=== PATIENT | male | born 1995 | race Two or more races ===

== ENCOUNTER → 2018-10-22 20:42 | Emergency (ER) | payer OTHER ==
[~2018-10-22 20:42] MED LIST: Lidocaine 2% PF * 5 ML VIAL ONE
[2018-10-22 21:14] VITALS: BP 137/77
== END | disposition left against medical advice (07) ==
LOC: ED 20:42
DX: S61.215A Laceration without foreign body of left ring finger without damage to nail, initial encounter (principal); W26.0XXA Contact with knife, initial encounter; Y93.G1 Activity, food preparation and clean up; Y92.9 Unspecified place or not applicable; Z53.21 Procedure and treatment not carried out due to patient leaving prior to being seen by health care provider
CPT/HCPCS: 99281

== ENCOUNTER 2018-10-23 00:35 | Emergency (ER) | payer OTHER ==
--- NOTE | 2018-10-23 02:38 | ED ---
Laceration/Wound HPI - HPI Summary HPI Summary: This patient is a 23 year old M presenting to [facility] accompanied by a woman with a chief complaint of left hand ring finger laceration that occurred 6 hours ago. Pt states he was cooking when he accidently cut his finger. The patient rates the pain 2/10 in severity. He has the finger bandaged and bleeding has stopped at this time. Pt has no other complaints at this time. - History of Current Complaint Stated Complaint: FINGER LAC Time Seen by Provider: 10/23/18 02:08 Hx Obtained From: Patient Onset/Duration: Lasting Hours, Still Present Timing: Constant Onset Severity: Mild Current Severity: Mild Pain Intensity: 2 Pain Scale Used: 0-10 Numeric Associated Signs & Symptoms: Negative - fever - Allergy/Home Medications Allergies/Adverse Reactions: Allergies Allergy/AdvReac Type Severity Reaction Status Date / Time No Known Allergies Allergy Verified 10/23/18 00:42 PMH/Surg Hx/FS Hx/Imm Hx Cardiovascular History: Denies: Hx Coronary Artery Disease, Hx Peripheral Vascular Disease, Hx Rheumatic Fever Respiratory History: Denies: Hx Chronic Obstructive Pulmonary Disease (COPD), Hx Cystic Fibrosis, Hx Pleural Effusion, Hx Pulmonary Edema GI History: Denies: Hx Diverticulosis, Hx Gastroesophageal Reflux Disease, Hx Gastrointestinal Bleed Neurological History: Denies: Hx Developmental Delay Infectious Disease History: No Infectious Disease History: Denies: Traveled Outside the [place] in Last 30 Days - Family History Known Family History: Negative: Respiratory Disease, Seizure Disorder - Social History Lives: With Family Alcohol Use: Rare Hx Substance Use: No Substance Use Type: Reports: None Hx Tobacco Use: No Smoking Status (MU): Never Smoked Tobacco Review of Systems Negative: Fever Positive: Other - laceration All Other Systems Reviewed And Are Negative: Yes Physical Exam - Summary Physical Exam Summary: VITAL SIGNS: Reviewed. GENERAL: Patient is a well-developed and nourished male who is lying comfortable in the stretcher. Patient is not in any acute respiratory distress. HEAD AND FACE: No signs of trauma. No ecchymosis, hematomas or skull depressions. No sinus tenderness. EYES: PERRLA, EOMI x 2, No injected conjunctiva, no nystagmus. EARS: Hearing grossly intact. Ear canals and tympanic membranes are within normal limits. MOUTH: Oropharynx within normal limits. NECK: Supple, trachea is midline, no adenopathy, no JVD, no carotid bruit, no c- spine tenderness, neck with full ROM. CHEST: Symmetric, no tenderness at palpation LUNGS: Clear to auscultation bilaterally. No wheezing or crackles. CVS: Regular rate and rhythm, S1 and S2 present, no murmurs or gallops appreciated. ABDOMEN: Soft, non-tender. No signs of distention. No rebound no guarding, and no masses palpated. Bowel sounds are normal. EXTREMITIES: FROM in all major joints, no edema, no cyanosis or clubbing. NEURO: Alert and oriented x 3. No acute neurological deficits. Speech is normal and follows commands. SKIN: laceration on the 2cm left 4th digit with free flap Triage Information Reviewed: Yes Vital Signs On Initial Exam: Initial Vitals Temp Pulse Resp BP Pulse Ox 97.6 F 110 16 137/86 97 10/23/18 00:37 12 00:37 12 00:37 10/23/18 00:37 10/23/18 00:37 Completion Of Physical Exam Limited Due To: Dementia Procedures - Laceration/Wound Repair 1 Location: upper extremity Description: Linear Anesthesia: 2.0%, Epi Length, Depth and Shape: 2cm with free flap Irrigated w/ Saline (ccs): 10 Laceration/Wound Explored: clean Suture Type: Prolene - 5-0 Number of Sutures: 7 Sterile Dressing Applied?: Yes Diagnostics - Vital Signs Vital Signs Temp Pulse Resp BP Pulse Ox 10/23/18 00:37 97.6 F 110 16 137/86 97 - Laboratory Lab Statement: Any lab studies that have been ordered have been reviewed, and results considered in the medical decision making process. Laceration Repair Course/Dx - Course Assessment/Plan: This patient is a 23 year old M presenting to [facility] accompanied by a woman with a chief complaint of left hand ring finger laceration that occurred 6 hours ago. Pt states he was cooking when he accidently cut his finger. The patient rates the pain 2/10 in severity. He has the finger bandaged and bleeding has stopped at this time. Pt has no other complaints at this time. The laceration was repaired in the ED. Sterile dressing and abx applied. Pt was given motrin, percocet, and keflex. Patient will be discharged with prescription for keflex and follow up from PCP. The patient is agreeable with this plan. - Clinical Impression Provider Diagnoses: Laceration Discharge - Sign-Out/Discharge Documenting (check all that apply): Patient Departure - Discharge Plan Condition: Stable Disposition: HOME Patient Education Materials: Laceration (ED), Stitches Removal (ED) Referrals: [facility] [Outside] Additional Instructions: Keep the laceration clean and dry for two days. The stiches may be removed in 10 days. Apply bacitracin 3 times a day. RETURN TO THE EMERGENCY DEPARTMENT FOR CHANGING OR WORSENING SYMPTOMS. - Attestation Statements Document Initiated by Scribe: Yes Documenting Scribe: Fabian Love Provider For Whom Scribe is Documenting (Include Credential): Madeline Babb MD Scribe Attestation: IFabian , scribed for Madeline Babb MD on 10/23/18 at 0251. Status of Scribe Document: Ready
[2018-10-23] MEDS ORDERED: oxyCODONE/Acetamin 5/325 MG* TAB PO ONE (02:51)
[2018-10-23] MEDS ORDERED: Ibuprofen TAB* 800 MG PO ONE (02:51)
[2018-10-23] MEDS ORDERED: Cephalexin CAP* 500 MG PO ONE (02:52)
[2018-10-23 03:25] VITALS: BP 120/69
== END 2018-10-23 03:20 | disposition home or self-care (01) ==
LOC: ED 00:35
DX: S61.215A Laceration without foreign body of left ring finger without damage to nail, initial encounter (principal); W45.8XXA Other foreign body or object entering through skin, initial encounter; Y93.G3 Activity, cooking and baking; Y92.9 Unspecified place or not applicable
CPT/HCPCS: 12001; 99282; A9270-GY

== ENCOUNTER 2018-11-03 14:13 | Emergency (ER) | payer OTHER ==
--- NOTE | 2018-11-03 14:42 | ED ---
ED Suture/Wound Check - HPI Summary HPI Summary: Pt here for suture removal. Had a laceration to his left middle finger on October 23 while cooking. He had 7 sutures placed at that time. He denies redness, swelling, streaking, purulent drainage, fever, chills, numbness, tingling, weakness. He reports he left his dressing on for the first 48 hours and then took it off and he's been using his finger is normal since. He has not been covering or applying triple antibiotic ointment. He also reports she' s not sure if he took his antibiotics as directed however he is not reporting signs or symptoms of infection at this time. - History Of Current Complaint Chief Complaint: EDLacSutureRecheck Stated Complaint: SUTURE REMOVAL Time Seen by Provider: 11/03/18 14:15 Hx Obtained From: Patient, Family/Information Systems Planner - female rehabilitation liaison Pain Intensity: 0 - Allergies/Home Medications Allergies/Adverse Reactions: Allergies Allergy/AdvReac Type Severity Reaction Status Date / Time No Known Allergies Allergy Verified 11/03/18 14:19 PMH/Surg Hx/FS Hx/Imm Hx Previously Healthy: Yes Endocrine/Hematology History: Denies: Hx Anticoagulant Therapy, Hx Blood Disorders, Autoimmune Disease Cardiovascular History: Denies: Hx Coronary Artery Disease, Hx Peripheral Vascular Disease, Hx Rheumatic Fever Respiratory History: Denies: Hx Chronic Obstructive Pulmonary Disease (COPD), Hx Cystic Fibrosis, Hx Pleural Effusion, Hx Pulmonary Edema GI History: Denies: Hx Diverticulosis, Hx Gastroesophageal Reflux Disease, Hx Gastrointestinal Bleed Neurological History: Denies: Hx Developmental Delay - Immunization History Immunizations Up to Date: Yes Infectious Disease History: No Infectious Disease History: Denies: Hx of Known/Suspected MRSA, Traveled Outside the [place] in Last 30 Days - Family History Known Family History: Negative: Respiratory Disease, Seizure Disorder - Social History Occupation: Student [employer] Lives: With Family - female rehabilitation liaison Alcohol Use: Rare Hx Substance Use: No Substance Use Type: Reports: None Hx Tobacco Use: No Smoking Status (MU): Never Smoked Tobacco Review of Systems Constitutional: Negative Musculoskeletal: Negative Skin: Other - healing wound Neurological: Negative Psychological: Normal All Other Systems Reviewed And Are Negative: Yes Physical Exam Triage Information Reviewed: Yes Vital Signs On Initial Exam: Initial Vitals Temp Pulse Resp BP Pulse Ox 97.5 F 82 16 130/82 98 11/03/18 14:16 11/03/18 14:16 11/03/18 14:16 11/03/18 14:16 11/03/18 14:16 Vital Signs Reviewed: Yes Appearance: Positive: Well-Appearing, No Pain Distress, Well-Nourished Skin: Positive: Warm, Skin Color Reflects Adequate Perfusion, Dry - wound is dry , calloused flap at edges - no erythema, no ecchymosis, no edema, no drainge, no streaking - [address] Head/Face: Positive: Normal Head/Face Inspection Eyes: Positive: EOMI ENT: Positive: Hearing grossly normal Respiratory/Lung Sounds: Positive: Breath Sounds Present Cardiovascular: Positive: Pulses are Symmetrical in both Upper and Lower Extremities Musculoskeletal: Positive: Normal, Strength/ROM Intact Neurological: Positive: Normal, Sensory/Motor Intact, Alert, Oriented to Person Place, Time, CN Intact II-III Psychiatric: Positive: Normal Procedures - Procedure Summary Procedure Summary: 7 sutures removed from Left finger - 1 is buried into tissue but removed without trauma to tissue - wound cleaned with alcohol and steristrips applied as flap is raised at edges - pt tolerated well. Diagnostics - Vital Signs Vital Signs Temp Pulse Resp BP Pulse Ox 11/03/18 14:16 97.5 F 82 16 130/82 98 - Laboratory Lab Statement: Any lab studies that have been ordered have been reviewed, and results considered in the medical decision making process. Course/Dx - Clinical Impression Provider Diagnoses: Encounter for removal of sutures Discharge - Sign-Out/Discharge Documenting (check all that apply): Patient Departure - Discharge Plan Condition: Stable Disposition: HOME Patient Education Materials: Steristrips (ED) Referrals: [facility] - Mack MOORE [Primary Care Provider] - Additional Instructions: Keep strips clean, dry and in place for 5 days - they will fall off on their own. Follow-up at [facility] for wound recheck in 5 day In the meantime, monitor for signs of infection - redness, swelling, streaking, purulent drainage, fever, chills, pain with moving finger. If these symptoms present, seek medical attention right away. - Billing Disposition and Condition Condition: STABLE Disposition: Home
[2018-11-03 14:54] VITALS: BP 137/65
== END 2018-11-03 14:54 | disposition home or self-care (01) ==
LOC: ED 14:13
DX: Z48.02 Encounter for removal of sutures (principal)
CPT/HCPCS: 99281

== ENCOUNTER 2018-11-05 19:33 | Emergency (ER) | payer OTHER ==
--- NOTE | 2018-11-05 20:51 | ED ---
Laceration/Wound HPI - HPI Summary HPI Summary: 23 year old male presents for recheck of left ring finger today. He states he cut it couple weeks ago. He states he had stitches in his finger. He states that he had them remove couple days ago and had sterristrips on the area but got them wet before he was suppose to. He states he did not take his antibiotics. He states that the edges seemed to open up and are turned a little bit black. No drainage from the wound. No spreading redness. No numbness or tingling. No fevers. Has no medical conditions. - History of Current Complaint Stated Complaint: LT FINGER ISSUE Time Seen by Provider: 11/05/18 20:27 Pain Intensity: 0 - Allergy/Home Medications Allergies/Adverse Reactions: Allergies Allergy/AdvReac Type Severity Reaction Status Date / Time No Known Allergies Allergy Verified 11/03/18 14:19 PMH/Surg Hx/FS Hx/Imm Hx Endocrine/Hematology History: Denies: Hx Anticoagulant Therapy, Hx Blood Disorders Cardiovascular History: Denies: Hx Coronary Artery Disease, Hx Peripheral Vascular Disease, Hx Rheumatic Fever Respiratory History: Denies: Hx Chronic Obstructive Pulmonary Disease (COPD), Hx Cystic Fibrosis, Hx Pleural Effusion, Hx Pulmonary Edema GI History: Denies: Hx Diverticulosis, Hx Gastroesophageal Reflux Disease, Hx Gastrointestinal Bleed Neurological History: Denies: Hx Developmental Delay - Immunization History Immunizations Up to Date: Yes Infectious Disease History: No Infectious Disease History: Denies: Hx of Known/Suspected MRSA, Traveled Outside the [place] in Last 30 Days - Family History Known Family History: Negative: Respiratory Disease, Seizure Disorder - Social History Alcohol Use: Occasionally Hx Substance Use: No Substance Use Type: Reports: None Hx Tobacco Use: No Smoking Status (MU): Never Smoked Tobacco Review of Systems Negative: Fever Negative: Chest Pain Negative: Shortness Of Breath Positive: Myalgia - wound check left ring finger All Other Systems Reviewed And Are Negative: Yes Physical Exam Triage Information Reviewed: Yes Vital Signs On Initial Exam: Initial Vitals Temp Pulse Resp BP Pulse Ox 99.3 F 94 20 137/83 98 11/05/18 19:41 11/05/18 19:41 11/05/18 19:41 11/05/18 19:41 11/05/18 19:41 Vital Signs Reviewed: Yes Appearance: Positive: Well-Appearing Skin: Positive: Warm, Dry, Other - healing flap like laceation left ring finger with some dehiscence but no erythema with some eschar on the edges Head/Face: Positive: Normal Head/Face Inspection Eyes: Positive: Normal, Conjunctiva Clear ENT: Positive: Pharynx normal Respiratory/Lung Sounds: Positive: Clear to Auscultation, Breath Sounds Present Cardiovascular: Positive: Normal, RRR Musculoskeletal: Positive: Strength/ROM Intact - left ring finger, Other - capillary refill<2secs Neurological: Positive: Normal Psychiatric: Positive: Normal Diagnostics - Vital Signs Vital Signs Temp Pulse Resp BP Pulse Ox 11/05/18 19:41 99.3 F 94 20 137/83 98 - Laboratory Lab Statement: Any lab studies that have been ordered have been reviewed, and results considered in the medical decision making process. Laceration Repair Course/Dx - Course Course Of Treatment: 23 year old male presents for recheck of left ring finger today. He states he cut it couple weeks ago. He states he had stitches in his finger. He states that he had them remove couple days ago and had sterristrips on the area but got them wet before he was suppose to. He states he did not take his antibiotics. He states that the edges seemed to open up and are turned a little bit black. No drainage from the wound. No spreading redness. No numbness or tingling. No fevers. Has no medical conditions. On exam has 2 cm flap like laceration with evidence of dehiscence and minor eschar. no evidence of cellulitis. cleaned area and placed neosporin. told to keep area clean and apply neosporin. will place on keflex. told to follow up with manoj for wound check. patient understand and agrees with plan. - Differential Dx Differental Diagnoses: Abrasion, Avulsion, Dehiscence - Clinical Impression Provider Diagnoses: Encounter for wound re-check Discharge - Sign-Out/Discharge Documenting (check all that apply): Patient Departure - Discharge Plan Condition: Good Disposition: HOME Prescriptions: Bacitracin OINT* 5 gm TOPICAL DAILY #1 tube Cephalexin CAP* [Keflex CAP*] 500 mg PO BID #14 cap Patient Education Materials: Acute Wounds (ED) Referrals: [facility] - Manoj MOORE [Primary Care Provider] - Additional Instructions: wash area with soap and water apply bactrician to area daily and cover area Take keflex twice a day for 7 days follow up with manoj for wound check Return to ED if develop any new or worsening symptoms - Billing Disposition and Condition Condition: GOOD Disposition: Home
[2018-11-05 21:07] VITALS: BP 149/70
== END 2018-11-05 21:06 | disposition home or self-care (01) ==
LOC: ED 19:33
DX: Z48.00 Encounter for change or removal of nonsurgical wound dressing (principal)
CPT/HCPCS: 99282